=== PATIENT | female | born 1980 | race Hispanic/Latino ===

== ENCOUNTER 2020-08-22 12:08 | Outpatient (CLI) | payer BC ==
[2020-08-23 01:13] LABS: SARS-CoV-2 PCR by NAA Not Detected (NotDetected)
== END 2020-08-22 12:09 | disposition home or self-care (01) ==
LOC: LABBT 12:08
PROVIDERS: ATTEND Surgery
DX: Z01.812 Encounter for preprocedural laboratory examination (principal); R22.2 Localized swelling, mass and lump, trunk; L72.8 Other follicular cysts of the skin and subcutaneous tissue; Z20.822 Contact with and (suspected) exposure to COVID-19
CPT/HCPCS: 87635; U0003; U0005

== ENCOUNTER 2020-08-25 10:36 | Day surgery (SDC) | payer BC ==
[2020-08-24 12:30] VITALS: BMI 37.2
[2020-08-25] MEDS ORDERED: Levofloxacin 500 mg/D5W 100 ml Premix Bag ONE (11:12)
[2020-08-25] MEDS ORDERED: Fentanyl 100 MCG/2 ML VIAL ONE (12:42)
[2020-08-25] MEDS ORDERED: Lidocaine 1% w/Epinephrine 1:100K 20 ML VIAL ONE (12:43)
[2020-08-25] MEDS ORDERED: Bupivacaine 0.25% HCL 30 ML VIAL ONE (12:43)
[2020-08-25] MEDS ORDERED: PROPOFOL 200 MG/20 ML VIAL ONE (12:51)
[2020-08-25] MEDS ORDERED: Ondansetron PF 4 MG/2 ML Vial ONE (12:51)
[2020-08-25] MEDS ORDERED: Dexamethasone 20 MG/5 ML VIAL ONE (12:51)
[2020-08-25] MEDS ORDERED: Ketorolac Tromethamine 30 MG/ML VIAL ONE (12:51)
[2020-08-25] MEDS ORDERED: Bacitracin Zinc Ointment 30 gm TUBE ONE (13:20)
== END 2020-08-25 15:39 | disposition home or self-care (01) ==
LOC: SDC 10:36
PROVIDERS: ATTEND Surgery
PROC: 0JB70ZZ Excision of Back Subcutaneous Tissue and Fascia, Open Approach (ICD-10-PCS; principal; 2020-08-25)
PROC: 0H90XZZ Drainage of Scalp Skin, External Approach (ICD-10-PCS; principal; 2020-08-25)
DX: M79.89 Other specified soft tissue disorders (principal); L72.12 Trichodermal cyst; E11.9 Type 2 diabetes mellitus without complications; E78.5 Hyperlipidemia, unspecified; F17.210 Nicotine dependence, cigarettes, uncomplicated; Z88.0 Allergy status to penicillin; Z79.82 Long term (current) use of aspirin; Z79.899 Other long term (current) drug therapy; Z79.84 Long term (current) use of oral hypoglycemic drugs
CPT/HCPCS: 88304; J1100; J1885; J1956; J2405; J2704; J3010; S0020